=== PATIENT | male | born 1950 | race Two or more races ===

== ENCOUNTER 2023-07-05 10:45 | Emergency (ER) | payer OTHER ==
[~2023-07-05] VITALS: Ht 172.7 cm; Wt 84.8 kg
[2023-07-05] MEDS ORDERED: LISINOPRIL10 MG (10:56)
[2023-07-05] MEDS ORDERED: PLAVIX75 MG (10:56)
[2023-07-05] MEDS ORDERED: ATORVASTATIN CA80 MG (10:56)
[2023-07-05] MEDS ORDERED: TENORMIN25 MG PO (10:56)
[2023-07-05] MEDS ORDERED: ADULT LOW DOSE81 M1 (10:57)
[2023-07-05] MEDS ORDERED: METOPROLOL TARTRATE 100 MG TABLET PO ONE (11:15)
[2023-07-05 11:30] LABS: HEMATOCRIT 40.6 % (39.0-48.0); HEMOGLOBIN 13.9 g/dL (13-16.00); MEAN CELL VOLUME 91.6 fL (80.0-100.00); MEAN CORPUSCULAR HEMOGLOBIN 31.4 pg (27.00-32.0); MEAN CORPUSCULAR HGB CONC 34.3 g/dl (32.0-36.0); PLATELET COUNT 163 K/uL (150-450); RED BLOOD COUNT 4.43 M/uL (4.00-6.00); RED CELL DISTRIBUTION WIDTH 13.9 % (11.5-14.5)
[2023-07-05 11:47] LABS: CALCIUM 9.3 mg/dL (8.5-10.1); CREATININE SERUM 0.93 mg/dL (0.70-1.30); GFR 79.87; POTASSIUM 4.45 mEq/L (3.5-5.1)
== END 2023-07-05 12:52 | disposition home or self-care (01) ==
LOC: ER 10:45
PROVIDERS: Emergency Medicine
DX: I10 Essential (primary) hypertension (principal); Z88.0 Allergy status to penicillin